=== PATIENT | female | born 1990 | race African-American/Black ===

== ENCOUNTER 2018-03-24 01:55 | Emergency (ER) | payer SELFPAY ==
--- NOTE | 2018-03-24 03:01 | RADIOLOGY REPORT (SQ) ---
EXAM DESCRIPTION: 3 views of the right hand CLINICAL HISTORY: foreign body COMPARISON: None. FINDINGS: 3 views of the right hand. No acute fracture or dislocation. Normal osseous mineralization. Radiopaque foreign body PROTRUDING from the interspace between the first and second digits. Tiny focus of subcutaneous air. The foreign body appears to be contiguous with no dislodged fragments. IMPRESSION: 1. No acute fracture. 2. Metallic linear foreign body partially embedded in the interspace between the first and second digit. The distance the foreign body protrudes into the soft tissues is 4-6 mm. The foreign body appears to be intact with no dislodged fragments.
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
[2018-03-24 05:32] VITALS: BP 156/83
== END 2018-03-24 04:33 | disposition home or self-care (01) ==
LOC: ER 01:55
DX: S60.551A Superficial foreign body of right hand, initial encounter (principal); W45.8XXA Other foreign body or object entering through skin, initial encounter; F17.200 Nicotine dependence, unspecified, uncomplicated; E11.9 Type 2 diabetes mellitus without complications; Z91.14 Patient's other noncompliance with medication regimen
CPT/HCPCS: 99283

== ENCOUNTER → 2019-10-01 | Outpatient (CLI) | payer BC ==
--- NOTE | 2019-10-02 10:28 | RADIOLOGY REPORT (SQ) ---
EXAM DESCRIPTION: HYSTEROSALPINGOGRAM; HYSTERO CATH/INJECTION COMPLETED DATE/TIME: 10/01/2019 4:07 pm; 10/01/2019 4:08 pm REASON FOR STUDY: INFERTILITY COMPARISON: None. PROCEDURE: PRE-PROCEDURE: Procedure was explained to the patient. She was told to expect cramping du ring the procedure, and possible spotting post procedure. PROCEDURE: The cervix was prepped in sterile fashion. Under direct visual inspection, the cervix was cannulated with the hysterosalpingogram catheter and contrast injected. TECHNIQUE: Temporal fluoroscopic images acquired during the procedure stored to PACS. FLUOROSCOPY TIME: 15 SECONDS 32 images saved to PACS. LIMITATIONS: None. FINDINGS: UTERUS: No identified anomalies. No synechia. RIGHT ADNEXA: Normal size fallopian tube. Free spill of contrast into the peritoneal cavity. LEFT ADNEXA: Normal size fallopian tube. Free spill of contrast into the peritoneal cavity. POST PROCEDURE: The patient tolerated the procedure with no adverse effects. IMPRESSION: NORMAL HYSTEROSALPINGOGRAM. COMMENT: Study performed by and interpreted by the radiologist. Study performed by DOG BOARDER physician. Supervision and interpretation by the radiologist. Quality ID 145: Final reports for procedures using fluoroscopy that document radiation exposure wang florina, or exposure time and number of fluorographic images (if radiation exposure indices are not avail able) TECHNICAL DOCUMENTATION: JOB ID: [id number] [employer]- All Rights Reserved Reading location - IP/workstation name: [email or web address]
--- NOTE | 2019-10-02 10:28 | RADIOLOGY REPORT (SQ) ---
EXAM DESCRIPTION: HYSTEROSALPINGOGRAM; HYSTERO CATH/INJECTION COMPLETED DATE/TIME: 10/01/2019 4:07 pm; 10/01/2019 4:08 pm REASON FOR STUDY: INFERTILITY COMPARISON: None. PROCEDURE: PRE-PROCEDURE: Procedure was explained to the patient. She was told to expect cramping du ring the procedure, and possible spotting post procedure. PROCEDURE: The cervix was prepped in sterile fashion. Under direct visual inspection, the cervix was cannulated with the hysterosalpingogram catheter and contrast injected. TECHNIQUE: Temporal fluoroscopic images acquired during the procedure stored to PACS. FLUOROSCOPY TIME: 15 SECONDS 32 images saved to PACS. LIMITATIONS: None. FINDINGS: UTERUS: No identified anomalies. No synechia. RIGHT ADNEXA: Normal size fallopian tube. Free spill of contrast into the peritoneal cavity. LEFT ADNEXA: Normal size fallopian tube. Free spill of contrast into the peritoneal cavity. POST PROCEDURE: The patient tolerated the procedure with no adverse effects. IMPRESSION: NORMAL HYSTEROSALPINGOGRAM. COMMENT: Study performed by and interpreted by the radiologist. Study performed by ASSISTANT TEACHER PRIMARY physician. Supervision and interpretation by the radiologist. Quality ID 145: Final reports for procedures using fluoroscopy that document radiation exposure wang florina, or exposure time and number of fluorographic images (if radiation exposure indices are not avail able) TECHNICAL DOCUMENTATION: JOB ID: [id number] [employer]- All Rights Reserved Reading location - IP/workstation name: [email or web address]
== END ==
LOC: RAD 15:14
PROVIDERS: ATTEND Obstetrics & Gynecology
DX: N97.9 Female infertility, unspecified (principal)
CPT/HCPCS: 58340; 74740